=== PATIENT | male | born 1980 | race Caucasian/White ===

== ENCOUNTER 2016-10-03 17:05 | Emergency (ER) | payer OTHER ==
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
[2016-10-03 17:15] VITALS: BP 156/94; PULSE 75; TEMP 97.8; BMI 25.8
[2016-10-03] MEDS ORDERED: KETOROLAC TROMETHAMINE 60 MG/2 ML VIAL ONE (17:47)
[2016-10-03] MEDS ORDERED: CEPHALEXIN MONOHYDRATE 500 MG CAPSULE (UD) ONE (17:47)
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
[2016-10-03] MEDS ORDERED: KETOROLAC TROMETHAMINE 60 MG/2 ML VIAL IM ONE (17:54)
[2016-10-03] MEDS ORDERED: CEPHALEXIN MONOHYDRATE 500 MG CAPSULE (UD) PO ONE (17:54)
== END 2016-10-03 18:02 | disposition home or self-care (01) ==
LOC: JERFT 17:05
PROC: 3E0233Z Introduction of Anti-inflammatory into Muscle, Percutaneous Approach (ICD-10-PCS; principal; 2016-10-03)
DX: S60.111A Contusion of right thumb with damage to nail, initial encounter (principal); V48.3XXA Unspecified car occupant injured in noncollision transport accident in nontraffic accident, initial encounter; Y92.410 Unspecified street and highway as the place of occurrence of the external cause; Y93.89 Activity, other specified
CPT/HCPCS: 73140-TC-RT; 99281-25

== ENCOUNTER 2016-10-06 19:53 | Emergency (ER) | payer OTHER ==
[2016-10-06 20:11] VITALS: BP 155/109; PULSE 81; TEMP 98.1; BMI 26.5
--- NOTE | 2016-10-06 20:13 | PDOC ---
Rapid Medical Evaluation Time Seen by Provider: 10/06/16 20:08 Medical Evaluation: Allergies Allergy/AdvReac Type Severity Reaction Status Date / Time levofloxacin [From Levaquin] Allergy Verified 10/06/16 20:03 Vital Signs Temp Pulse Resp BP Pulse Ox 98.1 F 81 20 155/109 98 10/06/16 20:00 10/06/16 20:00 10/06/16 20:00 10/06/16 20:00 10/06/16 20:00 10/06/16 20:10 RME Note: I have performed a brief, in-person evaluation of this patient . 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
[2016-10-06] MEDS ORDERED: IBUPROFEN 600 MG TABLET (FP) PO ONE ×2 (21:46→22:00)
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
== END 2016-10-06 22:06 | disposition home or self-care (01) ==
LOC: JER 19:53
PROC: 0H9FXZZ Drainage of Right Hand Skin, External Approach (ICD-10-PCS; principal; 2016-10-06)
DX: L03.031 Cellulitis of right toe (principal)
CPT/HCPCS: 99281-25